=== PATIENT | male | born 1990 | race Caucasian/White ===

== ENCOUNTER 2016-10-30 22:32 | Emergency (ER) | payer MEDICAID ==
[2016-10-30 22:42] VITALS: BP 144/74; PULSE 98; RESP 16; TEMP 98.6; O2SAT 96
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
== END 2016-10-30 22:53 ==
DX: F10.129 Alcohol abuse with intoxication, unspecified (principal); Z02.89 Encounter for other administrative examinations